=== PATIENT | female | born 1945 | race Caucasian/White ===

== ENCOUNTER 2024-11-27 05:31 | Emergency (ER) | payer OTHER, SELFPAY ==
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
[2024-11-27 05:45] VITALS: BP 118/80; BP 174/75; PULSE 71; PULSE 75; RESP 16; TEMP 36.8; O2SAT 99; BMI 20.2
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
[2024-11-27 10:12] VITALS: BP 137/59; PULSE 63; RESP 16; TEMP 36.8; O2SAT 98
== END 2024-11-27 10:13 | disposition home or self-care (01) ==
PROVIDERS: Emergency Provider Emergency Medicine Emergency Medical Services
DX: S00.83XA Contusion of other part of head, initial encounter (principal); S09.90XA Unspecified injury of head, initial encounter; R51.9 Headache, unspecified; M54.2 Cervicalgia; V43.52XA Car driver injured in collision with other type car in traffic accident, initial encounter; Y93.9 Activity, unspecified; Y92.410 Unspecified street and highway as the place of occurrence of the external cause; Y99.8 Other external cause status
CPT/HCPCS: 70450; 70486; 72125; 99284

== ENCOUNTER → 2024-11-27 06:43 | Outpatient (BNV) | payer MEDICARE, SELFPAY | PROVIDERS: Emergency Provider Emergency Medicine Emergency Medical Services; Visit Provider Radiology Diagnostic Radiology | DX: M54.2 Cervicalgia (principal); M47.812 Spondylosis without myelopathy or radiculopathy, cervical region; R51.9 Headache, unspecified; V89.2XXA Person injured in unspecified motor-vehicle accident, traffic, initial encounter | CPT/HCPCS: 70450; 70486; 72125 ==